=== PATIENT | female | born 1975 | race Caucasian/White ===

== ENCOUNTER 2017-10-22 22:06 | Emergency (ER) | payer BC ==
[~2017-10-22] VITALS: Ht 154.9 cm; Wt 108.0 kg
[~2017-10-22 22:06] MED LIST: SERT50TA PO
[2017-10-22 22:07] VITALS: Ht 154.9 cm; Wt 108.0 kg
[2017-10-22] MEDS ORDERED: IBUPROFEN 600 MG TAB PO STA (22:48)
[2017-10-22] MEDS ORDERED: AZITTAB PO (22:59)
[2017-10-22] MEDS ORDERED: PRED10TA PO (22:59)
[2017-10-22] MEDS ORDERED: SERT100T PO (22:59)
--- NOTE | 2017-10-22 23:02 | DIAGNOSTIC IMAGING REPORT ---
CHEST 2 VIEWS ROUTINE CLINICAL HISTORY: Cough. Upper respiratory infection. COMPARISON STUDY: 11/01/2010 FINDINGS: The cardiac and mediastinal contours are normal. There is no evidence of focal pulmonary consolidation. There is no evidence of failure. No pleural effusions are visualized.[ IMPRESSION: No active disease in the chest. Electronically signed by: Dru Garzon M.D. 10/22/2017 11:01 PM Dictated Date/Time: 10/22/2017 11:01 PM
[2017-10-22] MEDS ORDERED: ALBUT/IPRATROP 3MG/0.5MG NEB 3 ML VIAL INH STA (23:19)
[2017-10-22] MEDS ORDERED: ALBUTEROL HFA 8 GM INHALER INH STA (23:20)
[2017-10-22 23:42] VITALS: BP 123/69; PULSE 71; TEMP 36.7; O2SAT 99
--- NOTE | 2017-10-23 00:19 | EMERGENCY ROOM VISIT NOTE ---
History First contact with patient: 22:16 Chief Complaint: RIB PAIN Stated Complaint: RIB PAIN History of Present Illness The patient is a 42 year old female who presents to the Emergency Room with complaints of bilateral rib pain and cough. The patient reports that she developed a cold with cough approximate 6-7 days ago. She saw her family doctor on Tuesday and was told that it was likely a viral infection. She was provided a prescription for cough syrup with codeine. When her symptoms worsen , she called the office 2 days later, and was provided a prescription for a Z- Naveed and steroids. The patient reports that she has been coughing so much that her ribs hurt. She reports a runny nose and sinus congestion. She denies any abdominal pain, diarrhea or shortness of breath. She has not taken ibuprofen or Tylenol for her rib discomfort, and currently rates her discomfort a 7 out of 10 on my exam. Review of Systems 10 system review was performed and was negative except for pertinent positives and negatives as indicated in history of present illness Past Medical/Surgical History Medical Problems: (1) Anxiety State Nos (2) Ectopic (3) Ovarian Cyst Nec/Nos Family History FH: cancer FH: diabetes mellitus FH: heart disease FH: kidney disease Social History Smoking Status: Never Smoker Alcohol Use: none Marital Status: Housing Status: lives with family Occupation Status: employed Current/Historical Medications Scheduled Azithromycin (Zithromax Z-Naveed), 250 MG PO UD Prednisone Tab (Prednisone), 10 MG PO UD Sertraline Hcl (Zoloft), 100 MG PO DAILY Physical Exam Vital Signs Date Time Temp Pulse Resp B/P (MAP) Pulse Ox O2 Delivery O2 Flow Rate FiO2 10/22/17 23:42 36.7 71 18 123/69 99 10/22/17 23:38 71 18 123/69 99 Room Air 10/22/17 22:07 36.7 76 22 155/102 97 Room Air Physical Exam CONSTITUTIONAL: Healthy and well nourished. Alert and oriented X 3 with positive affect. Patient does not appear in any acute distress. She has a nonproductive cough. HEENT: Normocephalic, atraumatic. Pupils equal, round and reactive. Examination of the ears shows mild TM bulging without serous or purulent/ exudative effusion. Clear rhinorrhea is noted. OROPHARYNX: Mild posterior frontal erythema without positive hypertrophy or exudates. NECK: Full active range of motion without discomfort. RESPIRATORY: Patient has mild end expiratory wheezing in all mcclain. No crackles, rhonchi or stridor. CARDIOVASCULAR: Regular rate and rhythm with no murmurs, rubs or gallops. GASTROINTESTINAL: Bowel sounds present in all quadrants. Soft and nontender to palpation. MUSCULOSKELETAL: The patient has generalized tenderness to palpation of the ribs without any focal findings, crepitance or subcutaneous emphysema. INTEGUMENTARY: No rash or other significant dermatologic conditions noted. NEUROLOGIC: No focal neurologic deficits noted. Medical Decision & Procedures ER Provider Diagnostic Interpretation: My interpretation of a two-view chest x-ray does not show any consolidations, pneumothorax or obvious rib fracture. Radiologist report is as follows: CHEST 2 VIEWS ROUTINE CLINICAL HISTORY: Cough. Upper respiratory infection. COMPARISON STUDY: 11/01/2010 FINDINGS: The cardiac and mediastinal contours are normal. There is no evidence of focal pulmonary consolidation. There is no evidence of failure. No pleural effusions are visualized.[ IMPRESSION: No active disease in the chest. Medications Administered Medications (Trade) Dose Ordered Sig/Zia Route Start Time Stop Time Status Last Admin Dose Admin Ibuprofen (Motrin Tab) 600 mg NOW STAT PO 10/22/17 22:48 10/22/17 22:50 DC 10/22/17 23:02 600 MG Albuterol/ Ipratropium (Duoneb) 3 ml NOW STAT INH 10/22/17 23:19 10/22/17 23:20 DC 10/22/17 23:26 3 ML Albuterol (Ventolin Hfa Inhaler) 2 puffs ONE STAT INH 10/22/17 23:20 10/22/17 23:21 DC 10/22/17 23:27 2 PUFFS ED Course Patient history and physical exam were performed. Nurse's notes were reviewed. Vital signs were reviewed. The patient is hypertensive at 155/102. She is otherwise afebrile with O2 saturation of 97% on room air. A two-view chest x- ray was normal. The patient was administered a unit dose DuoNeb treatment. The patient reports moderate relief of her cough. The patient was dispensed a Ventolin metered-dose inhaler. She was encouraged to continue with her current medications as prescribed by her PCP. She was instructed to add albuterol 2 puffs every 4 hours for additional cough relief. She was encouraged to follow- up with her PCP in the next 3-5 days. She is welcome to return to the emergency department for any progressively worsening symptoms. The patient was happy with plan of care, and voiced understanding of all discharge instructions. The patient was instructed to have her blood pressure rechecked by her PCP. Medical Decision Medication Reconcilliation Current Medication List: was personally reviewed by me Blood Pressure Screening Patient's blood pressure: Elevated blood pressure Blood pressure disposition: Referred to PCP Impression Primary Impression: Acute bronchitis Additional Impression: Elevated blood pressure reading Departure Information Dispostion Home / Self-Care Referrals Felipe Blari D.O. (PCP) Forms HOME CARE DOCUMENTATION FORM, IMPORTANT VISIT INFORMATION Patient Instructions My [facility] [employer] Additional Instructions Complete Zithromax antibiotics and prednisone as prescribed by your PCP. Albuterol 2 puffs every 4 hrs for additional cough relief. Follow-up with your PCP mid week for further reevaluation and management. Problem Qualifiers Primary Impression: Acute bronchitis Bronchitis organism: unspecified organism Qualified Codes: J20.9 - Acute bronchitis, unspecified
== END 2017-10-22 23:43 | disposition home or self-care (01) ==
LOC: C.EDB 22:06
DX: J20.9 Acute bronchitis, unspecified (principal); R03.0 Elevated blood-pressure reading, without diagnosis of hypertension; F41.9 Anxiety disorder, unspecified; Z83.3 Family history of diabetes mellitus

== ENCOUNTER 2018-10-29 19:21 | Inpatient (IN) ==
[2018-10-29 20:07] LABS: Appearance Urine Clear (Clear); Bacteria Urine Automated Negative (Negative); Bilirubin Urine Negative (Negative); Blood Urine Negative (Negative); Color Urine Yellow; Epithelial Cell Urine Auto >30 /lpf (0-5); Glucose Urine UA Negative (Negative); Ketones Urine Negative (Negative); Leukocyte Esterase Urine 2+ (Negative); Nitrite Urine Negative (Negative); Protein Urine Negative (Negative); RBC Urine Automated 0-4 /hpf (0-4); Specific Gravity Urine 1.023 (1.000-1.030); Urobilinogen Urine Negative (Negative); pH Urine 5.5 (4.5-7.5)
[2018-10-29 20:18] LABS: Creatinine Urine Random 98.5 mg/dl
[2018-10-29 20:36] LABS: Basophils # (auto) 0.01 K/uL (0-0.2); Basophils % (auto) 0.1 %; Eosinophils # (auto) 0.08 K/uL (0-0.5); Eosinophils % (auto) 0.8 %; Hematocrit (blood only) 35.1 % (37-47); Hemoglobin 11.7 g/dL (12.0-16.0); Immature Granulocytes # (auto) 0.12 K/uL (0.00-0.02); Immature Granulocytes % (auto) 1.2 %; Lymphocytes % (auto) 14.7 %; Mean Corpuscular Volume 93.9 fL (80-100); Monocytes # (auto) 0.93 K/uL (0.11-0.59); Monocytes % (auto) 9.1 %; Neutrophils # (auto) 7.57 K/uL (1.4-6.5); Neutrophils % (auto) 74.1 %; Nucleated RBC # (auto) 0.07 K/uL (0-0); Nucleated RBC % (auto) 0.7 %; Platelet Count 206 K/uL (130-400); RDW Coefficient of Variation 14.6 % (11.5-14.5); RDW Standard Deviation 49.2 fL (36.4-46.3); Red Blood Count 3.74 M/uL (4.2-5.4); White Blood Count 10.21 K/uL (4.8-10.8)
[2018-10-29] MEDS ORDERED: NIFEdipine 10 MG CAP PO STA (20:36)
[2018-10-29 20:39] LABS: Mean Corpuscular Hgb Conc 33.3 g/dL (32-36)
[2018-10-29] MEDS ORDERED: OXYTOCIN 20 UNITS in LACTATED RINGER'S 1,000 ML IV SCH ×2 (20:45→23:30)
[2018-10-29 20:47] LABS: INR 0.9 (0.9-1.1); Partial Thromboplastin Ratio 0.8; Partial Thromboplastin Time 22.9 Seconds (21.0-31.0); Prothrombin Time 9.1 Seconds (9.0-12.0)
[2018-10-29 20:57] LABS: Alanine Aminotransferase 13 U/L (12-78); Albumin Level 2.4 gm/dl (3.4-5.0); Alkaline Phosphatase 123 U/L (45-117); Aspartate Aminotransferase 18 U/L (15-37); Bilirubin Direct < 0.1 mg/dl (0-0.2); Bilirubin,Total 0.2 mg/dl (0.2-1)
[2018-10-29] MEDS ORDERED: LACTATED RINGER'S 1,000 ML IV SCH ×2 (21:00→21:58)
[2018-10-29] MEDS ORDERED: HydrALAZINE HCL 20 MG/ML VIAL IV STA ×2 (21:01→21:02)
[2018-10-29] MEDS ORDERED: HydrALAZINE HCL 20 MG/ML VIAL ONE (21:02)
[2018-10-29] MEDS ORDERED: MAGNESIUM SULFATE 4GM / WTR 100 ML BAG IV ONE ×3 (21:07→23:53)
[2018-10-29] MEDS ORDERED: CITRIC ACID/SODIUM CITRATE 15 ML UDC PO STA (21:07)
[2018-10-29] MEDS ORDERED: CEFAZOLIN 2000MG 2,000 MG/15 ML SYR IV STA (21:10)
[2018-10-29] MEDS ORDERED: OXYTOCIN 10 UNITS/ML VIAL ONE ×2 (21:16→22:56)
[2018-10-29] MEDS ORDERED: fentaNYL citrate 100 MCG/2 ML VIAL ONE (21:36)
[2018-10-29] MEDS ORDERED: MoRPHine SULFATE PF 1 MG/ML 10 ML AMP/VIAL ONE (21:36)
--- NOTE | 2018-10-29 21:48 | History and Physical Report ---
DATE OF ADMISSION: 10/29/2018 HISTORY OF PRESENT ILLNESS: The patient is a 43-year-old G5, P0, due date 11/25/2018, making her 36 weeks and 1 day today. The patient is known mild preeclamptic who was being observed and treated under conservative management. Presented today to and with headache that was not relieved by Tylenol, and increased swelling. On arrival arrived to [facility], the patient had several elevated blood pressures ranging from the 170s to 110s. Decision was therefore made to proceed with section. The fetus was breech. course has been complicated by history of factor V Leiden. Did not require treatment. Recommendation by [facility] was to start anticoagulation therapy . PAST MEDICAL HISTORY: 1. Factor V Leiden mutation. 2. History of ectopic . 3. Gestational diabetes in , treated with diet. PAST SURGICAL HISTORY: Surgery for ectopic , dental surgery, and hysterosalpingogram. SOCIAL HISTORY: The patient denies tobacco, drug, or alcohol use. FAMILY HISTORY: Noncontributory. PHYSICAL EXAMINATION: GENERAL: Well-developed, well-nourished white female in no acute distress. HEART: S1, S2, regular rhythm and rate. LUNGS: Clear to auscultation bilaterally. ABDOMEN: Gravid. NST is category 1. ASSESSMENT AND PLAN: A 43-year-old G5, P0 at 36 weeks with severe preeclampsia. The infant is breech. Decision is to perform section as soon as possible.
[2018-10-29] MEDS ORDERED: OXYTOCIN 10 UNITS/ML VIAL IM ONE (22:42)
[2018-10-29] MEDS ORDERED: DiphenhydrAMINE HCL 50 MG/ML VIAL IV PRN ×2 (22:54)
[2018-10-29] MEDS ORDERED: NALOXONE HCL 1 MG in SODIUM CHLORIDE 0.9% 1000ML 1,000 ML IV PRN (22:54)
[2018-10-29] MEDS ORDERED: LACTATED RINGER'S 500 ML IV PRN (22:54)
[2018-10-29] MEDS ORDERED: MoRPHine SULFATE 4 MG/ML 1 ML CARP\\VIAL IV PRN (22:54)
[2018-10-29] MEDS ORDERED: ePHEDrine sulfate 50 MG/ML AMP IV PRN (22:54)
[2018-10-29] MEDS ORDERED: NALBUPHINE HCL INJ 10 MG/ML AMP IV PRN (22:54)
[2018-10-29] MEDS ORDERED: MoRPHine SULFATE PF 1 MG/ML 10 ML AMP/VIAL INT SPINAL ONE (22:54)
[2018-10-29] MEDS ORDERED: PROMETHAZINE HCL 6.25 MG in SODIUM CHLORIDE 0.9% 50 ML IV PRN (22:54)
[2018-10-29] MEDS ORDERED: ONDANSETRON INJ 2 MG/ML 2 ML VIAL IV PRN (22:54)
[2018-10-29] MEDS ORDERED: NALOXONE HCL 0.4 MG/1 ML VIAL/CARP IV PRN (22:54)
[2018-10-29] MEDS ORDERED: KETOROLAC 30 MG/ML VIAL IV PRN (22:54)
[2018-10-29] MEDS ORDERED: MEPERIDINE HCL 25 MG/ML CARP IV PRN (22:54)
[2018-10-29] MEDS ORDERED: NALOXONE HCL 0.08 MG in SYRINGE 1.8 ML IV PRN (22:54)
--- NOTE | 2018-10-29 22:54 | Anesthesiology Consultation ---
Date of Service October 29, 2018 Morbid Obesity Severe Pre Ecclampsia Assessment & Plan (1) Encounter for pre-operative examination: Chart Review Chart Review: Acceptable Risk for Surgery and Patient NOT seen in Pre Admission Testing Consults Requested none ASA ASA3 Proposed Anesthesia Anesthesia Type: Spinal Risk / Benefits Reviewed With: PT / POA / Parent / Guardian, Accepts Plan and Informed Consent Obtained NPO Date Last Intake of Fluids: 10/29/18 Time Last Intake of Fluids: 20:00 Date Last Intake of Solids: 10/29/18 Time Last Intake of Solids: 17:00 History Surgery Operation Date: 10/29/18 21:30 Proposed Procedures p Section in LD - Michael Ma MD Allergies Allergy/AdvReac Type Severity Reaction Status Date / Time ephedrine Allergy Intermediate rash and Verified 10/26/18 17:13 "hyper" latex Allergy Intermediate Rash Verified 10/26/18 17:13 Medications Home Medications Medication Instructions Recorded Confirmed Last Taken PNV cmb#95-ferrous fumarate-FA 1 tab PO DAILY 10/29/18 10/29/18 10/29/18 09:00 [] nifedipine [Procardia] 10 mg PO Q4H 10/29/18 10/29/18 10/29/18 16:30 sertraline [Zoloft] 50 mg PO DAILY 10/29/18 10/29/18 10/29/18 09:00 Past Medical History Medical History Anxiety Depression Ectopic Factor 5 Leiden mutation, heterozygous History of left lateral epicondylitis Medial epicondylitis of left elbow [place] teeth removed Past Family History Family History Father Heart attack Factor 5 Leiden mutation, heterozygous Hypertension Saddle embolus Pulmonary embolism DVT (deep venous thrombosis) Mother Heart valve replaced Social History Smoking Status: Never smoker Hx Alcohol Use: No Hx Substance Use: No Physical Exam Vital Signs Last Vital Signs Temp 37.0 C 10/29/18 19:49 Pulse 83 10/29/18 21:19 Resp 18 10/29/18 19:49 BP 161/83 H 10/29/18 21:19 Constitutional + morbidly obese Gravid Abdomen ENMT Mouth: no TMJ abnormality Thyromental Distance: > or= 3.5 Finger Breadths Mallampati Class: II Neck normal visual inspection Respiratory normal respiratory effort Cardiovascular Rate/Rhythm: regular rate and regular rhythm Neurologic moves all extremities Psychiatric Orientation: alert Testing Laboratory Results 10/29/18 20:24 Antibody Screen NEGATIVE 10/29/18 20:28 PT 9.1 Seconds (9.0-12.0) 10/29/18 20:24 INR 0.9 (0.9-1.1) 10/29/18 20:24 APTT 22.9 Seconds (21.0-31.0) 10/29/18 20:24 Urine Color Yellow 10/29/18 19:30 Urine Appearance Clear (Clear) 10/29/18 19:30 Urine pH 5.5 (4.5-7.5) 10/29/18 19: Ur Specific [place] 1.023 (1.000-1.030) 10/29/18 19:30 Urine Protein Negative (Negative) 10/29/18 19:30 Urine Glucose (UA) Negative (Negative) 10/29/18 19:30 Urine Ketones Negative (Negative) 10/29/18 19:30 Urine Nitrite Negative (Negative) 10/29/18 19:30 Ur Leukocyte Esterase 2+ (Negative) H 10/29/18 19:30 Urine WBC (Auto) 5-10 /hpf (0-5) H 10/29/18 19:30 Urine RBC (Auto) 0-4 /hpf (0-4) 10/29/18 19:30 U Hyaline Cast (Auto) 1-5 /lpf (0-5) 10/29/18 19:30 U Epithel Cells (Auto) >30 /lpf (0-5) H 10/29/18 19:30 Urine Bacteria (Auto) Negative (Negative) 10/29/18 19:30
[2018-10-29] MEDS ORDERED: KETOROLAC 30 MG/ML VIAL ONE (22:56)
[2018-10-29] MEDS ORDERED: LIDOCAINE 2% 20 MG/ML 5 ML SYR IV ONE (22:56)
[2018-10-29] MEDS ORDERED: DC INTRASPINAL MORPHINE SCH (23:00)
[2018-10-29] MEDS ORDERED: NO NARCOTICS OR SEDATIVES SCH (23:00)
[2018-10-29] MEDS ORDERED: SODIUM CHLORIDE 0.9% 1000ML 1,000 ML IV SCH (23:00)
[2018-10-29] MEDS ORDERED: miSOPROStol 200 MCG TAB ONE (23:03)
[2018-10-29] MEDS ORDERED: SUPERCREAM 0.870% 15 GM JAR EXT PRN (23:21)
[2018-10-29] MEDS ORDERED: BENZOCAINE 20% AER SPR 82.5 GM CAN EXT PRN (23:21)
[2018-10-29] MEDS ORDERED: SENNA 8.6 MG TAB PO PRN (23:21)
[2018-10-29] MEDS ORDERED: MAGNESIUM HYDROXIDE SUSP 30 ML UDC PO PRN (23:21)
[2018-10-29] MEDS ORDERED: HYDROCORTISONE ACETATE 25 MG SUPP PR PRN (23:21)
--- NOTE | 2018-10-29 23:27 | Post Operative Brief Note ---
Immediate Post Op Note v1 Date of Surgery October 29, 2018 Pre & Post Diagnosis Operation Date: 10/29/18 21:30 Pre-Op Diagnosis: A 43-year-old G5, P0 at 36 weeks with severe preeclampsia. The infant is breech. Post-Op Diagnosis: A 43-year-old G5, P0 at 36 weeks with severe preeclampsia. The is breech. Procedure Operation Date: 10/29/18 21:30 Actual Procedures p Section in LD - Michael Ma MD Surgeon Michael Ma MD Cotton Expert dr layton Estimated Blood Loss 800 Findings Consistent with Post-Op Diagnosis Drains Whittington Catheter
[2018-10-29] MEDS ORDERED: MAGNESIUM SULFATE / WTR 40 GM/1,000 ML BAG IV ONE (23:45)
[2018-10-29] MEDS ORDERED: MAGNESIUM SULFATE 40GM / WTR 1,000 ML BAG IV ONE (23:56)
--- NOTE | 2018-10-30 00:37 | Anesthesiology Progress Note ---
Date of Service October 30, 2018 Anesthesia Post Procedure Vital Signs Vital Signs: Temp Pulse Resp BP Pulse Ox 10/30/18 00:35 71 156/77 H 10/30/18 00:33 85 99 10/30/18 00:28 79 99 10/30/18 00:25 73 172/77 H 10/30/18 00:23 88 99 10/30/18 00:18 79 99 10/30/18 00:16 92 H 171/99 H 94 10/30/18 00:13 97 H 99 10/30/18 00:08 81 99 10/30/18 00:06 80 178/70 H 10/30/18 00:03 79 99 10/29/18 23:58 75 173/78 H 99 10/29/18 23:53 91 H 99 10/29/18 23:52 88 92 10/29/18 23:48 85 97 10/29/18 23:46 71 146/90 H 10/29/18 23:43 69 98 10/29/18 23:42 76 149/100 H 10/29/18 23:38 80 99 10/29/18 23:33 81 99 10/29/18 23:28 74 99 10/29/18 23:26 76 144/67 H 10/29/18 23:25 18 10/29/18 23:23 89 100 10/29/18 23:18 79 99 10/29/18 23:15 36.7 C 18 10/29/18 23:14 75 114/59 L 10/29/18 23:13 78 98 10/29/18 21:19 83 161/83 H 10/29/18 21:17 84 177/103 H 10/29/18 21:04 89 202/96 H 10/29/18 20:59 90 208/115 H 10/29/18 20:48 93 H 189/103 H 10/29/18 20:38 82 171/103 H 10/29/18 20:28 84 171/99 H 10/29/18 20:18 81 170/92 H 10/29/18 20:08 78 170/91 H 10/29/18 19:58 77 164/89 H 10/29/18 19:49 37.0 C 18 10/29/18 19:48 78 170/91 H 10/29/18 19:38 78 168/88 H 10/29/18 19:26 90 178/93 H Notes Mental Status: alert / awake / arousable Nausea / Vomiting: adequately controlled Pain: adequately controlled Airway Patency, RR, SpO2: stable & adequate BP & HR: stable & adequate Hydration State: stable & adequate Neuraxial Anesthesia: was administered and sensory block is resolving Anesthetic Complications: no major complications apparent
[2018-10-30 06:40] LABS: Basophils # (auto) 0.01 K/uL (0-0.2); Basophils % (auto) 0.1 %; Eosinophils # (auto) 0.03 K/uL (0-0.5); Eosinophils % (auto) 0.2 %; Hematocrit (blood only) 31.6 % (37-47); Hemoglobin 10.3 g/dL (12.0-16.0); Immature Granulocytes # (auto) 0.11 K/uL (0.00-0.02); Immature Granulocytes % (auto) 0.8 %; Lymphocytes # (auto) 1.66 K/uL (1.2-3.4); Lymphocytes % (auto) 11.6 %; Mean Corpuscular Hgb Conc 32.6 g/dL (32-36); Mean Corpuscular Volume 93.8 fL (80-100); Mean Platelet Volume 11.7 fL (7.4-10.4); Monocytes # (auto) 1.08 K/uL (0.11-0.59); Monocytes % (auto) 7.5 %; Neutrophils # (auto) 11.48 K/uL (1.4-6.5); Neutrophils % (auto) 79.8 %; Platelet Count 191 K/uL (130-400); RDW Coefficient of Variation 14.8 % (11.5-14.5); Red Blood Count 3.37 M/uL (4.2-5.4); White Blood Count 14.37 K/uL (4.8-10.8)
--- NOTE | 2018-10-30 07:59 | Operative Report ---
DATE OF OPERATION: 10/29/2018 DELIVERY NOTE/ SECTION NOTE INDICATION FOR SURGERY: 1. Severe preeclampsia. 2. Breech presentation. POSTOPERATIVE DIAGNOSES: Same. PROCEDURES: section for severe preeclampsia, remote from delivery, and 2 sections. SURGEON: Michael Ma MD GANTRY RIGGER: Charles Serrano MD ANESTHESIA: Spinal. ESTIMATED BLOOD LOSS: 800 mL. URINE OUTPUT: 200 mL. INTRAVENOUS FLUIDS: 1500 mL. FINDINGS: Live in a neftali breech presentation. Rest of the uterus and adnexa appeared grossly normal. Rest of the abdominal pelvic exam is unremarkable. COMPLICATIONS: None. DRAINS: Whittington catheter. PATHOLOGY: Placenta. DISPOSITION: Stable to recovery room. DESCRIPTION OF PROCEDURE: The patient was taken to the operating room where she was prepped and draped in normal sterile fashion. A timeout was called. A Pfannenstiel incision was made and carried down to the fascia with a scalpel. Fascia was incised in the midline and extended laterally on both sides. Fascia was sharply dissected off the rectus abdominus muscles superiorly and inferiorly. Peritoneum was identified, entered sharply. An Sergio retractor was placed in the abdomen for retraction. The vesicouterine peritoneum was sharply dissected off the lower uterine segment. Transverse incision made on the lower segment of the uterus and extended laterally with bandage scissors. was delivered with breech maneuvers. Buttocks were delivered followed by the body, both arms and head. Cord was clamped and cut and handed over to the pediatric team. Cord blood was obtained. Placenta was manually removed. Uterus was exteriorized and cleared of all clots and debris. Uterus was closed in layers with Vicryl suture. There was good hemostasis at the end of the closure. Both adnexa appeared grossly normal. Copious amount of irrigation was used to irrigate the abdomen. All instruments were removed from the abdomen including retractors, needles, and sponges. Fascia was closed in a running fashion using Vicryl stitch. SubQ was placed with plain sutures. Skin was closed with bharti. All instruments were removed and accounted for x2. Baby and mother are doing well in recovery. I attest to the content of the Intraoperative Record and any orders documented therein. Any exception s are noted below.
[2018-10-30] MEDS: PRENATAL VITAMIN 1 TAB PO SCH (09:05)
[2018-10-30] MEDS: SIMETHICONE 80 MG CHEW PO SCH ×4 (09:05→21:12)
[2018-10-30] MEDS: FERROUS SULFATE 325 MG TAB PO SCH (09:05)
[2018-10-30] MEDS: ENOXAPARIN INJ 40 MG/0.4 ML SYR SQ SCH (09:07)
[2018-10-30] MEDS: DOCUSATE SODIUM 100 MG CAP PO SCH ×2 (09:14→21:12)
[2018-10-30] MEDS: SERTRALINE HCL 50 MG TABLET PO SCH (13:29)
[2018-10-30] MEDS ORDERED: DiphenhydrAMINE HCL 50 MG/ML VIAL IV PRN (16:55)
[2018-10-30] MEDS ORDERED: PROMETHAZINE HCL 25 MG in SODIUM CHLORIDE 0.9% 50 ML IV PRN (16:55)
[2018-10-30] MEDS ORDERED: OXYCODONE/ACETAMINOPHEN 5mg/325mg TAB PO PRN (16:55)
[2018-10-30] MEDS ORDERED: ONDANSETRON INJ 2 MG/ML 2 ML VIAL IV PRN (16:55)
[2018-10-30] MEDS ORDERED: BISACODYL 5 MG TABEC PO SCH (20:00)
[2018-10-30 20:08] LABS: Alanine Aminotransferase 11 U/L (12-78); Albumin Level 2.1 gm/dl (3.4-5.0); Aspartate Aminotransferase 21 U/L (15-37); Blood Urea Nitrogen 13 mg/dl (7-18); Calcium 6.9 mg/dl (8.5-10.1); Carbon Dioxide 25 mmol/L (21-32); Chloride 102 mmol/L (98-107); Est GFR (Non-African American) 88.9; Glucose 115 mg/dl (70-99); Sodium 134 mmol/L (136-145)
[2018-10-30 20:11] LABS: Albumin Globulin Ratio 0.7 (0.9-2); Alkaline Phosphatase 103 U/L (45-117); Bilirubin,Total 0.2 mg/dl (0.2-1); Total Protein 5.1 gm/dl (6.4-8.2)
[2018-10-30] MEDS: IBUPROFEN 600 MG TAB PO PRN (21:12)
--- NOTE | 2018-10-30 22:08 | Anesthesiology Progress Note ---
Date of Service October 30, 2018 Anesthesia Post Procedure Vital Signs Vital Signs: Temp Pulse Pulse Resp BP BP Pulse Ox 10/30/18 21:15 18 10/30/18 21:10 37.4 C 83 18 142/78 H 98 10/30/18 20:53 92 H 96 10/30/18 20:48 90 95 10/30/18 20:43 92 H 96 10/30/18 20:38 91 H 96 10/30/18 20:33 89 96 10/30/18 20:28 88 97 10/30/18 20:23 90 97 10/30/18 20:18 81 95 10/30/18 20:15 16 10/30/18 20:13 86 97 10/30/18 20:08 83 94 10/30/18 20:03 83 95 10/30/18 19:58 87 96 10/30/18 19:53 86 95 10/30/18 19:48 86 96 10/30/18 19:43 84 96 10/30/18 19:38 87 97 10/30/18 19:33 88 96 10/30/18 19:28 86 94 10/30/18 19:23 87 97 10/30/18 19:18 84 96 10/30/18 19:16 86 144/72 H 10/30/18 19:15 36.8 C 18 144/72 H 96 10/30/18 19:13 88 95 10/30/18 19:08 87 96 10/30/18 19:03 87 98 10/30/18 18:58 87 95 10/30/18 18:53 89 96 10/30/18 18:48 88 97 10/30/18 18:43 90 96 10/30/18 18:38 88 97 10/30/18 18:33 87 97 10/30/18 18:28 88 97 10/30/18 18:23 92 H 97 10/30/18 18:18 84 96 10/30/18 18:13 87 96 10/30/18 18:08 88 97 10/30/18 18:03 83 16 96 10/30/18 17:58 89 97 10/30/18 17:53 86 97 10/30/18 17:48 87 97 10/30/18 17:43 98 H 97 10/30/18 17:38 92 H 97 10/30/18 17:33 90 97 03/04/19 17:28 88 97 10/30/18 17:23 89 96 10/30/18 17:21 83 20 138/76 10/30/18 17:18 88 97 10/30/18 17:13 87 96 10/30/18 17:08 81 94 10/30/18 17:03 85 96 10/30/18 16:58 90 96 10/30/18 16:53 83 96 10/30/18 16:48 85 96 10/30/18 16:43 93 H 97 10/30/18 16:38 83 96 10/30/18 16:33 85 98 10/30/18 16:28 82 97 10/30/18 16:23 85 97 10/30/18 16:18 81 96 10/30/18 16:15 20 10/30/18 16:13 82 96 10/30/18 16:08 79 96 10/30/18 16:03 79 96 10/30/18 15:58 86 97 10/30/18 15:53 81 97 10/30/18 15:48 84 96 10/30/18 15:43 92 H 98 10/30/18 15:38 83 96 10/30/18 15:33 85 97 10/30/18 15:28 83 96 10/30/18 15:23 89 139/86 95 10/30/18 15:18 85 95 10/30/18 15:15 36.8 C 20 10/30/18 15:13 89 96 10/30/18 15:08 87 96 10/30/18 15:03 88 96 10/30/18 14:58 88 96 10/30/18 14:53 89 95 10/30/18 14:48 88 96 10/30/18 14:43 85 97 10/30/18 14:38 79 95 10/30/18 14:33 79 20 95 10/30/18 14:28 78 95 10/30/18 14:23 82 150/63 H 95 10/30/18 14:18 79 95 10/30/18 14:13 79 96 10/30/18 14:08 83 96 10/30/18 14:03 80 96 10/30/18 13:58 80 95 10/30/18 13:53 84 97 10/30/18 13:48 83 97 10/30/18 13:43 81 96 10/30/18 13:38 84 97 10/30/18 13:33 83 97 10/30/18 13:28 81 96 10/30/18 13:23 82 97 10/30/18 13:18 82 96 10/30/18 13:13 95 H 98 10/30/18 13:08 82 97 10/30/18 13:03 87 96 10/30/18 12:58 86 95 10/30/18 12:53 91 H 97 10/30/18 12:48 98 H 96 10/30/18 12:43 89 95 10/30/18 12:38 85 95 10/30/18 12:33 88 95 10/30/18 12:28 91 H 97 10/30/18 12:24 20 10/30/18 12:23 94 H 97 10/30/18 12:18 94 H 96 10/30/18 12:13 94 H 97 10/30/18 12:08 95 H 97 10/30/18 12:03 88 97 10/30/18 11:58 86 96 10/30/18 11:53 85 96 10/30/18 11:48 85 96 10/30/18 11:43 89 97 10/30/18 11:38 90 97 10/30/18 11:33 107 H 96 10/30/18 11:28 90 97 10/30/18 11:23 98 H 96 10/30/18 11:18 88 97 10/30/18 11:15 36.8 C 20 10/30/18 11:13 91 H 97 10/30/18 11:08 90 96 10/30/18 11:03 83 95 10/30/18 11:00 85 116/63 10/30/18 10:58 92 H 96 10/30/18 10:53 86 97 10/30/18 10:48 87 98 10/30/18 10:43 92 H 97 10/30/18 10:38 91 H 96 10/30/18 10:33 98 H 97 10/30/18 10:28 103 H 97 10/30/18 10:23 101 H 97 10/30/18 10:18 92 H 97 10/30/18 10:13 85 96 10/30/18 10:08 87 96 03/04/19 10:03 83 96 10/30/18 09:58 86 97 10/30/18 09:53 83 96 10/30/18 09:48 83 95 10/30/18 09:43 89 97 10/30/18 09:38 87 97 10/30/18 09:33 85 97 10/30/18 09:28 83 96 10/30/18 09:23 86 96 10/30/18 09:19 16 10/30/18 09:18 87 97 10/30/18 09:13 83 97 10/30/18 09:08 82 97 10/30/18 09:04 86 129/66 10/30/18 09:03 87 97 10/30/18 08:58 89 96 10/30/18 08:53 86 96 10/30/18 08:48 88 96 10/30/18 08:43 91 H 97 10/30/18 08:38 84 96 10/30/18 08:33 82 96 10/30/18 08:28 89 98 10/30/18 08:23 82 96 10/30/18 08:18 82 96 10/30/18 08:13 86 97 10/30/18 08:08 84 97 10/30/18 08:03 86 96 10/30/18 07:58 90 97 10/30/18 07:53 86 97 10/30/18 07:48 86 96 10/30/18 07:43 89 97 10/30/18 07:38 86 96 10/30/18 07:33 93 H 97 10/30/18 07:28 91 H 96 10/30/18 07:23 85 95 10/30/18 07:18 87 95 10/30/18 07:15 37.0 C 20 10/30/18 07:13 87 97 10/30/18 07:09 92 H 121/72 10/30/18 07:08 91 H 94 10/30/18 07:03 89 97 10/30/18 06:58 89 95 10/30/18 06:53 91 H 96 10/30/18 06:48 91 H 97 10/30/18 06:43 90 96 10/30/18 06:38 95 H 97 10/30/18 06:33 90 98 10/30/18 06:28 89 96 10/30/18 06:23 88 96 10/30/18 06:18 89 98 10/30/18 06:15 18 10/30/18 06:13 82 97 10/30/18 06:08 82 97 10/30/18 06:03 92 H 96 10/30/18 05:58 85 96 10/30/18 05:53 84 96 10/30/18 05:48 84 96 10/30/18 05:43 85 95 10/30/18 05:38 87 96 10/30/18 05:33 88 96 10/30/18 05:28 96 H 96 10/30/18 05:23 92 H 96 10/30/18 05:20 86 18 143/85 H 10/30/18 05:18 92 H 95 10/30/18 05:13 93 H 96 10/30/18 05:08 87 94 10/30/18 05:03 87 94 10/30/18 04:58 89 96 10/30/18 04:53 86 95 10/30/18 04:48 92 H 96 10/30/18 04:43 86 95 10/30/18 04:38 89 94 10/30/18 04:33 87 96 10/30/18 04:28 91 H 96 10/30/18 04:23 88 95 10/30/18 04:18 89 95 10/30/18 04:15 18 10/30/18 04:13 87 95 10/30/18 04:08 97 H 95 10/30/18 04:03 97 H 96 10/30/18 03:58 100 H 96 10/30/18 03:53 93 H 96 10/30/18 03:48 94 H 96 10/30/18 03:43 91 H 96 10/30/18 03:38 94 H 96 10/30/18 03:33 96 H 97 10/30/18 03:28 93 H 95 10/30/18 03:23 96 H 144/78 H 94 10/30/18 03:20 37.4 C 20 10/30/18 03:18 99 H 96 10/30/18 03:13 102 H 96 10/30/18 03:08 105 H 96 10/30/18 03:03 107 H 96 10/30/18 02:58 109 H 95 10/30/18 02:53 105 H 95 10/30/18 02:48 101 H 95 10/30/18 02:43 104 H 96 10/30/18 02:38 99 H 96 10/30/18 02:33 97 H 96 10/30/18 02:28 93 H 97 10/30/18 02:25 110 H 93 10/30/18 02:23 95 H 96 10/30/18 02:18 91 H 97 10/30/18 02:15 84 18 155/71 H 10/30/18 02:13 87 95 10/30/18 02:08 86 96 10/30/18 02:05 91 H 162/69 H 94 10/30/18 02:03 87 96 10/30/18 01:58 97 H 96 10/30/18 01:56 83 94 10/30/18 01:55 86 171/79 H 10/30/18 01:53 82 95 10/30/18 01:50 90 94 10/30/18 01:48 96 H 96 10/30/18 01:45 85 174/81 H 10/30/18 01:43 88 94 10/30/18 01:38 88 96 10/30/18 01:35 86 176/78 H 10/30/18 01:33 89 96 10/30/18 01:28 91 H 96 10/30/18 01:25 167/87 H 10/30/18 01:23 85 95 10/30/18 01:18 85 97 10/30/18 01:15 84 18 174/88 H 10/30/18 01:13 89 96 10/30/18 01:08 90 97 10/30/18 01:05 82 174/93 H 10/30/18 01:03 87 97 10/30/18 00:58 84 98 10/30/18 00:53 82 97 10/30/18 00:48 90 98 10/30/18 00:45 81 18 172/70 H 10/30/18 00:43 98 H 98 10/30/18 00:38 82 99 10/30/18 00:35 71 156/77 H 10/30/18 00:33 85 99 10/30/18 00:28 79 99 10/30/18 00:25 73 172/77 H 10/30/18 00:23 88 99 10/30/18 00:18 79 99 10/30/18 00:16 92 H 171/99 H 94 10/30/18 00:15 18 10/30/18 00:13 97 H 99 10/30/18 00:08 81 99 10/30/18 00:06 80 178/70 H 10/30/18 00:05 18 10/30/18 00:03 79 99 10/29/18 23:58 75 173/78 H 99 10/29/18 23:55 18 10/29/18 23:53 91 H 99 10/29/18 23:52 88 92 10/29/18 23:48 85 97 10/29/18 23:46 71 146/90 H 10/29/18 23:45 18 10/29/18 23:43 69 98 10/29/18 23:42 76 149/100 H 10/29/18 23:38 80 99 10/29/18 23:35 18 10/29/18 23:33 81 99 10/29/18 23:28 74 99 10/29/18 23:26 76 144/67 H 10/29/18 23:25 18 10/29/18 23:23 89 100 10/29/18 23:18 79 99 10/29/18 23:15 36.7 C 18 10/29/18 23:14 75 114/59 L 10/29/18 23:13 78 98 Pain Intensity Abdomen: Pain Intensity: 3 Notes Mental Status: alert / awake / arousable and participated in evaluation Nausea / Vomiting: adequately controlled Pain: adequately controlled Airway Patency, RR, SpO2: stable & adequate BP & HR: stable & adequate Hydration State: stable & adequate Neuraxial Anesthesia: was administered and sensory block resolved Anesthetic Complications: no major complications apparent
[2018-10-31] MEDS: IBUPROFEN 600 MG TAB PO PRN ×3 (03:59→21:10)
[2018-10-31 06:31] LABS: Hematocrit (blood only) 29.3 % (37-47); Hemoglobin 9.5 g/dL (12.0-16.0)
[2018-10-31] MEDS: SIMETHICONE 80 MG CHEW PO SCH ×4 (08:52→21:08)
[2018-10-31] MEDS: PRENATAL VITAMIN 1 TAB PO SCH (08:52)
[2018-10-31] MEDS: FERROUS SULFATE 325 MG TAB PO SCH (08:52)
[2018-10-31] MEDS: DOCUSATE SODIUM 100 MG CAP PO SCH ×2 (08:52→21:08)
[2018-10-31] MEDS: SERTRALINE HCL 50 MG TABLET PO SCH (08:52)
[2018-10-31] MEDS: ENOXAPARIN INJ 40 MG/0.4 ML SYR SQ SCH (08:55)
--- NOTE | 2018-10-31 10:51 | Obstetrical Progress Note ---
Date of Service October 31, 2018 Assessment & Plan (1) delivery delivered: C/sec day #2 for severe preeclampsia Off magnesium sulfate Pt doing well continue day #2 care Subjective Ambulation: ambulating normally Voiding: no voiding problems Passing Gas:: Yes Diet Tolerance:: regular diet Lochia:: Small Feeding Type:: breast feeding Review of Systems All systems reviewed & are unremarkable except as noted in HPI & below Physical Exam Vital Signs (Past 24 Hours) Last Vital Signs Temp 36.8 C 10/31/18 08:00 Pulse 65 10/31/18 08:00 Resp 18 10/31/18 08:00 BP 143/81 H 10/31/18 08:00 Pulse Ox 98 10/30/18 21:10 Constitutional WD/WN, vitals as above well developed and well nourished Eyes PERRL, conjunctivae normal, anicteric sclerae Neck trachea midline, no thyromegaly Respiratory normal respiratory effort, lungs clear to auscultation Auscultation: no crackles, no rales and no wheezes Cardiovascular RRR, no murmur, no edema Gastrointestinal (Abdomen) normal bowel sounds, soft, nontender, no hepatosplenomegaly Uterus is below umbilicus Musculoskeletal no cyanosis or clubbing, extremities motor strength 5/5 Skin no rashes, warm and dry Neurologic patellar DTR's 2+ bilat, sensation intact Psychiatric A+Ox3, euthymic affect Genitourinary normal external appearance
[2018-10-31] MEDS ORDERED: BISACODYL 10 MG SUPP PR PRN (23:21)
[2018-11-01] MEDS: IBUPROFEN 600 MG TAB PO PRN (06:18)
--- NOTE | 2018-11-01 08:30 | Obstetrical Progress Note ---
Date of Service November 01, 2018 Subjective Patient is seen and examined. She feels well, no complaints. Likes to be discharged today Pain is under control with oral meds. Ambulating without dizziness Voiding without difficulty Tolerating regular diet with out N&V Flatus + BM + Bleeding is minimal No PALACIOS/ Change in vision/fever/ chills/ CP/ SOB/ N&V/ Leg pain Bottle feeding without problems Vital Signs Temp Pulse Resp BP Pulse Ox 11/01/18 04:25 65 148/91 H 10/31/18 23:50 36.7 C 75 16 147/81 H 95 10/31/18 15:15 37.2 C 87 16 147/85 H 97 PE: General: Alert, orientedx3, NAD CVS: S1S2 RRR Lungs; CTAB Abd: soft, NT, ND, BS+, fundus firm, below Umbilicus Incision: Clean, dry, intact Perineum intact, Lochia rubra minimal Ext; NT, no edema AP: 43 yo s/p C Section, preeclampsia, pod# 3 VSS Afebrile doing well Continue routine postop care Encourage ambulation, PO intake All questions were answered Offered her to stay for BP checks but desires to be discharged today Will arrange home nurse to check for home BP D/C home , f/u in office Physical Exam Vital Signs (Past 24 Hours): Last Vital Signs Temp 36.7 C 10/31/18 23:50 Pulse 65 11/01/18 04:25 Resp 16 10/31/18 23:50 BP 148/91 H 11/01/18 04:25 Pulse Ox 95 10/31/18 23:50
[2018-11-01] MEDS: PRENATAL VITAMIN 1 TAB PO SCH (09:14)
[2018-11-01] MEDS: DOCUSATE SODIUM 100 MG CAP PO SCH (09:14)
[2018-11-01] MEDS: FERROUS SULFATE 325 MG TAB PO SCH (09:14)
[2018-11-01] MEDS: SERTRALINE HCL 50 MG TABLET PO SCH (09:14)
[2018-11-01] MEDS: SIMETHICONE 80 MG CHEW PO SCH (09:14)
[2018-11-01] MEDS: ENOXAPARIN INJ 40 MG/0.4 ML SYR SQ SCH (09:15)
--- NOTE | 2018-11-02 06:11 | Discharge Summary ---
Date of Service November 08, 2018 Discharge Data Procedures Performed Operation Date: 10/29/18 21:30 Actual Procedures p Section in LD - Michael aM MD
--- NOTE | 2018-11-08 05:09 | Discharge Summary ---
DETAILS OF ADMISSION: The patient is a 43-year-old G5, P0-0-4-0 at 35 weeks and 5 days. She was admitted on 10/26/2018 for preeclampsia without severe features Her blood pressures were monitored and her lab results were normal and she was discharged by Dr. Ma. She presented again on with persistent headache not relieved by Tylenol and increase in swelling. Upon presentation, her blood pressures were elevated and in severe ranges. She was admitted for preeclampsia with severe features and for delivery. Her baby was in breech presentation, so they proceeded with a primary . See dictated op note for details by Dr. Ma. On postop day #1, the patient was doing well. Her blood pressure were stable. They were borderline elevated and her symptoms improved. Her vital signs stable, afebrile. Physical exam was unremarkable. Her incision was clean, dry and intact and her abdomen is soft, nontender. On postop day #2, the patient was doing well. Vital signs stable, afebrile. She tolerated regular diet, ambulated and passed gas. On postop day #3, 11/01/2018, the patient was doing well. She wanted to be discharged. Pain was under control with oral medications. She was ambulating without dizziness, voiding without difficulty, tolerating regular diet without nausea or vomiting. She was passing gas and she moved her bowels. Vital signs were stable, afebrile. Physical exam was unremarkable and she has a GINA dressing, which was clean, dry and intact. On postop day #3, the patient was discharged home with discharge instructions were given when to call, prescriptions were written for pain. She is to be on anticoagulation with Lovenox for history of factor V Leiden deficiency. [facility]
== END 2018-11-01 11:45 | disposition home or self-care (01) | DRG 788 ==
LOC: OPB 19:21 → 4S1 19:22 → 4S2 10-30 21:15